=== PATIENT | female | born 1955 | race Caucasian/White ===

== ENCOUNTER 2017-09-24 04:59 | Day surgery (SDC) | payer OTHER ==
[~2017-09-24 04:59] MED LIST: CRITIC-AID CLEAR4 GM; ENALAPRIL-HCTZ1 EACH PO; GLIMEPIRIDE2 MG PO; METFORMIN HCL500 MG PO; ROSUVASTATIN CAL5 MG PO; VITAMIN D1000 UNI1 PO
== END 2017-09-24 16:55 | disposition home or self-care (01) ==
LOC: CIR.AMB 04:59
DX: N72 Inflammatory disease of cervix uteri (principal)

== ENCOUNTER → 2019-04-22 06:00 | Outpatient (CLI) | payer OTHER ==
[~2019-04-22 06:00] MED LIST changes: +JANUMET 50-5001 EACH PO
== END | disposition home or self-care (01) ==
LOC: EKG 06:00 → CIR.AMB 04-28 09:45 → EDSTATUS 04-28 10:00 → CIR.AMB 04-28 10:00
DX: N95.0 Postmenopausal bleeding (principal); Z01.818 Encounter for other preprocedural examination

== ENCOUNTER → 2019-05-27 13:18 | Outpatient (CLI) | payer OTHER | END | disposition home or self-care (01) | LOC: LAB 13:18 | DX: Z01.810 Encounter for preprocedural cardiovascular examination (principal); Z01.812 Encounter for preprocedural laboratory examination; Z00.00 Encounter for general adult medical examination without abnormal findings; I10 Essential (primary) hypertension; E78.00 Pure hypercholesterolemia, unspecified ==

== ENCOUNTER 2019-06-09 05:15 | Day surgery (SDC) | payer OTHER | END 2019-06-09 17:00 | disposition home or self-care (01) | LOC: CIR.AMB 05:15 | DX: N84.0 Polyp of corpus uteri (principal) ==